=== PATIENT | male | born 1980 | race Caucasian/White ===

== ENCOUNTER 2016-11-09 09:13 | Inpatient (IN) ==
[2016-11-09] MEDS ORDERED: SODIUM CHLORIDE 0.9% 1,000 ML IV STA (10:36)
[2016-11-09] MEDS ORDERED: ONDANSETRON 4 MG/2 ML VIAL IV STA (10:36)
[2016-11-09] MEDS ORDERED: PROMETHAZINE INJ 25 MG in SODIUM CHLORIDE 0.9% 50 ML IV STA (10:36)
[2016-11-09] MEDS ORDERED: PROMETHAZINE 25 MG/1 ML VIAL ONE (11:03)
[2016-11-09] MEDS ORDERED: ONDANSETRON 4 MG/2 ML VIAL ONE (11:03)
[2016-11-09 11:07] LABS: Basophils % 0.5 % (0.0-0.8); Eosinophils # 0.2 10*3/uL (0.0-0.87); Eosinophils % 3.6 % (0.00-10.9); Hematocrit 41.4 VOL% (42.0-52.0); Immature Granulocytes % 0.2 %; Immature Granulocytes Absolute 0.01 #; Lymphocytes # 2.2 10*3/uL (1.4-4.0); Lymphocytes % 35.1 % (21.2-54.2); Mean Corpuscular HGB Conc 33.8 GM/DL (32-36); Mean Corpuscular Hemoglobin 30 PG (27-34); Mean Corpuscular Volume 89.6 FL (87-102); Mean Platelet Volume 11.1 FL (9.6-12.0); Monocytes # 0.3 10*3/uL (0.11-0.8); Monocytes % 4.9 % (1.7-12.7); Neutrophils # 3.4 10*3/uL (1.4-7.4); Neutrophils % 55.7 % (38.7-73.9); Platelet Count 221 10*3/uL (130-400); Red Blood Count 4.62 10*6/uL (3.8-5.5); Red Cell Distribution Width 12.2 % (9.3-17.3); White Blood Count 6.2 10*3/uL (4.5-13.71)
[2016-11-09 11:40] LABS: Alanine Aminotransferase 22 U/L (16-61); Albumin 3.5 G/DL (3.4-5.0); Alkaline Phosphatase 92 U/L (45-117); Amylase 27 U/L (25-115); Aspartate Amino Transferase 19 U/L (0-37); Bilirubin,Direct < 0.1 MG/DL (0.0-0.20); Bilirubin,Indirect 0.3 MG/DL (0.0-1.0); Bilirubin,Total < 0.39 MG/DL (0.2-1.0); Blood Urea Nitrogen 6 MG/DL (7-18); Calcium 8.5 MG/DL (8.5-10.1); Glucose 82 MG/DL (74-106); Magnesium 2.3 MG/DL (1.8-2.4); Osmolality,Calculated 279.1 MOS/KG (273-304); Potassium 4.5 MMOL/L (3.5-5.1); Sodium 142 MMOL/L (136-145); Total Protein 7.1 G/DL (6.4-8.3)
[2016-11-09] MEDS ORDERED: PROMETHAZINE 25 MG/1 ML VIAL IM STA (11:49)
[2016-11-09] MEDS ORDERED: MORPHINE 2 MG/1 ML SYRINGE IV STA (11:49)
[2016-11-09] MEDS ORDERED: MORPHINE 2 MG/1 ML SYRINGE ONE (11:51)
--- NOTE | 2016-11-09 12:28 | Emergency Department Note ---
Corbin Garcia Jamie, am scribing for, and in the presence of, Jenaro Allen M.D. 10:41. Tiffany Garcia Howard T, M.D., personally performed the services described in this documentation, ascribed by Darinel Alaniz in my presence, and it is both accurate and complete [id number] . Arrival - Arrival Chief Complaint: Abdominal / Flank Pain Stated Complaint: pain in right side ED Nursing Triage Note: c/o gallstones/abd pain/nausea and vomiting. hx: peripheral neuropathy Mode of Arrival: Ambulatory Limitations: No Limitations Source: Patient, RN Notes Reviewed Time Seen by Provider: 11/09/16 10:29 - History of Present Illness HPI Narrative: Patient is a 36 y/o white male who presents to the ED c/o right side abdominal pain, nausea, and vomiting. Patient states he has been diagnosed with gallstones in the past and sxs have been intermittent. He reports vomiting 8-9 times since this morning. Patient states the pain he feels today is worse than previous abdominal pain. Onset (ago): unknown Consistency: constant Severity: moderate Allergies/Adverse Reactions: Allergies Allergy/AdvReac Type Severity Reaction Status Date / Time aspirin Allergy Unknown/Unable Verified 10/03/16 17:00 to obtain ketorolac [From Toradol] Allergy Unknown/Unable Verified 10/03/16 17:00 to obtain Penicillins Allergy Unknown/Unable Verified 10/03/16 17:00 to obtain phenobarbital Allergy Unknown/Unable Verified 10/03/16 17:00 to obtain Home Medications: Home Medications Medication Instructions Recorded Confirmed Type Gabapentin Cap/Tab [Neurontin 900 mg PO TID 10/03/16 11/09/16 History Cap/Tab] Review of System - Review of System 12 point system: reviewed and no additional remarkable complaints except as stated - Review of System Constitutional: Absent: chills, diaphoresis, fever, weakness Eyes: Absent: vision change Respiratory: Absent: cough, respiratory distress Cardiovascular: Absent: chest pain Gastrointestinal: Present: abdominal pain, nausea, vomiting. Absent: diarrhea, constipation Musculoskeletal: Absent: joint swelling Skin: Absent: rash, change in color Neurological: Absent: headache, weakness, numbness, confusion Hematological/Lymphatic: Absent: easy bleeding, easy bruising Medical,Surgical,& Family Hx - Medical History Neurology: History of: Peripheral Neuropathy - Social History Smoking Status: Current every day smoker Frequency of Alcohol Use: None Type of Drug Use: None Exam Vital Signs: Vital Signs Temperature 98.5 F 11/09/16 09:24 Pulse Rate 102 H 11/09/16 09:24 Respiratory Rate 17 11/09/16 09:24 Blood Pressure 141/99 11/09/16 09:24 O2 Sat by Pulse Oximetry 96 11/09/16 09:24 - General General appearance: alert, in no apparent distress - Head Head exam: Present: atraumatic, normocephalic, normal inspection - Eye Eye exam: Present: normal appearance, PERRL, EOMI - ENT ENT exam: Present: normal exam, TM's normal bilaterally - Neck Neck exam: Present: normal inspection, thyromegaly - Chest Chest inspection: Present: normal inspection, symmetric chest wall rise - Respiratory Respiratory exam: Present: normal lung sounds bilaterally - Cardiovascular Cardiovascular exam: Present: regular rate, normal rhythm, normal heart sounds - Abdominal Exam Abdominal exam: Present: soft, tenderness (RUQ), normal bowel sounds - Extremities Exam Extremities exam: Present: normal inspection, full ROM - Neurological Exam Neurological exam: Present: alert, oriented X3, reflexes normal - Psychiatric Psychiatric exam: Present: normal affect, normal mood - Skin Skin exam: Present: warm, dry, intact, normal color Course Course Narrative: Medical decision making: Patient appears stable but history and exam is consistent with biliary colic, discussed Dr. Arthur surgeon on-call who evaluated the patient and decided to admit overnight with plan cholecystectomy tomorrow. Results - Labs CBC & BMP: 11/09/16 10:52 11/09/16 10:52 Lab Results: I have reviewed the patients labs Disposition Clinical Impression: Biliary colic, Cholelithiases Case discussed with: patient Disposition: Disch/Xfer-[facility] Condition: Stable Time of Disposition: 12:27
--- NOTE | 2016-11-09 12:34 | General Surg History&Physical ---
Assessment and Plan (1) Cholecystitis Status: Acute Assessment and plan: This patient has a clinical presentation consistent with acute cholecystitis. He will be admitted to the hospital for IV antibiotics. I discussed the management of this problem with him in detail. My recommendation has been for laparoscopic versus open cholecystectomy. I have discussed the risks, benefits , and alternatives of the operation with the patient, and the expected outcomes have been reviewed. Patient like to proceed with laparoscopic cholecystectomy. He'll be resuscitated today and we will schedule this for tomorrow. Current Visit: Yes History of Present Illness Chief complaint: abdominal pain History of present illness: Mr. Singer is a 36 year old male with a past surgical history of appendectomy who presents to the hospital with intermittent postprandial right upper quadrant pain that radiates through to the back and a severe episode started at 1 o'clock this morning. His current episode is associated with pain in the right upper quadrant radiating through the back with nausea and vomiting with bilious emesis. He has had no changes in his bowel movements. He had a low- grade temperature at home. The patient was evaluated in the ER with lab work which showed normal LFTs and normal lipase. He had a prior gallbladder ultrasound in September 2016 which demonstrated gallstones with no evidence of gallbladder wall thickening and a normal sized common bile duct. Home Medications Medication Instructions Recorded Confirmed Type Gabapentin Cap/Tab [Neurontin 900 mg PO TID 10/03/16 11/09/16 History Cap/Tab] Allergies Allergy/AdvReac Type Severity Reaction Status Date / Time aspirin Allergy Unknown/Unable Verified 10/03/16 17:00 to obtain ketorolac [From Toradol] Allergy Unknown/Unable Verified 10/03/16 17:00 to obtain Penicillins Allergy Unknown/Unable Verified 10/03/16 17:00 to obtain phenobarbital Allergy Unknown/Unable Verified 10/03/16 17:00 to obtain Medical,Surgical,& Family Hx - Medical History Neurology: History of: Peripheral Neuropathy - Social History Smoking Status: Current every day smoker Frequency of Alcohol Use: None Type of Drug Use: None Exam - Constitutional Vitals: Period Temp Pulse Resp BP Sys/Miranda Pulse Ox Last 24 Hr 98.5 F 102 17 141/99 96 General appearance: no acute distress, over weight - Head Head exam: Present: normal inspection, normocephalic - Eye Eye exam: Present: EOMI Pupils: Present: MONICO - ENT ENT exam: Present: normal exam Mouth exam: Present: normal external inspection, normal voice - Neck Neck exam: Present: normal inspection, trachea midline - Respiratory Respiratory exam: Present: clear to auscultation bilaterally. Absent: accessory muscle use, chest wall tenderness - Cardiovascular Cardiovascular exam: Present: RRR. Absent: systolic murmur, tachycardia - GI/Abdominal GI/Abdominal exam: Present: normal bowel sounds, Vo's sign, tenderness, soft. Absent: rebound - Extremities Exam Extremities exam: Present: normal inspection, normal capillary refill - Back Exam Back exam: Present: normal inspection - Neurological Exam Neurological exam: Present: alert, oriented X3 Speech: Present: normal - Skin Skin exam: Present: normal color, warm - Constitutional Constitutional: Present: as per HPI - EENT Nose, mouth and throat: Present: as per HPI - Cardiovascular Cardiovascular: Present: as per HPI - Respiratory Respiratory: Present: as per HPI - Gastrointestinal Gastrointestinal: Present: as per HPI - Genitourinary Genitourinary: Present: as per HPI - Musculoskeletal Musculoskeletal: Present: as per HPI - Neurological Neurological: Present: as per HPI - Endocrine Endocrine: Present: as per HPI Hematologic/Lymphatic: Present: as per HPI Results - Labs CBC & BMP: 11/09/16 10:52 11/09/16 10:52 - Diagnostic Findings Procedure: Ultrasound: image reviewed by me, report reviewed by me
[2016-11-09] MEDS ORDERED: ONDANSETRON 4 MG/2 ML VIAL IV PRN (13:29)
[2016-11-09] MEDS ORDERED: PROMETHAZINE 25 MG/1 ML VIAL IM PRN (13:29)
[2016-11-09] MEDS ORDERED: ACETAMINOPHEN 325 MG TABLET PO PRN (13:29)
[2016-11-09] MEDS: metroNIDAZOLE INJ 500 MG in PREMIX 1 EACH IV SCH ×2 (14:06→22:12)
[2016-11-09] MEDS: LACTATED RINGERS 1,000 ML IV SCH (14:07)
[2016-11-09] MEDS: HYDROmorphone 2 MG/1 ML VIAL IV PRN ×3 (14:07→22:12)
[2016-11-09] MEDS: GABAPENTIN 300 MG CAPSULE PO SCH ×2 (16:24→20:09)
[2016-11-09] MEDS: CIPROFLOXACIN INJ 400 MG in PREMIX 1 EACH IV SCH (16:24)
[2016-11-10] MEDS: LACTATED RINGERS 1,000 ML IV SCH ×3 (00:15→13:35)
[2016-11-10] MEDS: HYDROmorphone 2 MG/1 ML VIAL IV PRN ×6 (02:37→11:30)
[2016-11-10] MEDS: CIPROFLOXACIN INJ 400 MG in PREMIX 1 EACH IV SCH (03:36)
[2016-11-10] MEDS: metroNIDAZOLE INJ 500 MG in PREMIX 1 EACH IV SCH (06:01)
[2016-11-10] MEDS ORDERED: ENOXAPARIN 40 MG/0.4 ML SYRINGE SUBCUT SCH (06:30)
[2016-11-10] MEDS ORDERED: PANTOPRAZOLE 40 MG TABLET PO SCH (09:00)
[2016-11-10] MEDS ORDERED: BUPIVACAINE MPF 0.25% /EPI 30 ML VIAL ONE (09:39)
[2016-11-10] MEDS ORDERED: TISSUE ADHESIVE 1 EACH APPLICATOR TOP ONE (09:39)
[2016-11-10] MEDS ORDERED: LIDOCAINE 1%/EPI INJ 20 ML VIAL ONE (09:39)
[2016-11-10] MEDS ORDERED: ROCURONIUM 100 MG/10 ML VIAL IV ONE (09:45)
[2016-11-10] MEDS ORDERED: LIDOCAINE 1% 5 ML VIAL ONE (09:45)
[2016-11-10] MEDS ORDERED: ONDANSETRON 4 MG/2 ML VIAL ONE (09:45)
[2016-11-10] MEDS ORDERED: PROPOFOL 200 MG/20 ML VIAL IV ONE (09:45)
[2016-11-10] MEDS ORDERED: GLYCOPYRROLATE 0.4 MG/2 ML VIAL ONE (09:45)
[2016-11-10] MEDS ORDERED: NEOSTIGMINE 10 MG/10 ML VIAL ONE (09:45)
[2016-11-10] MEDS ORDERED: DEXAMETHASONE 10 MG/1 ML VIAL ONE (09:45)
--- NOTE | 2016-11-10 10:46 | Operative Note ---
Date of procedure: 11/10/16 Pre-op diagnosis: acute cholecystitis Post-op diagnosis: same Procedure: Preoperative diagnosis Acute cholecystitis Postoperative diagnosis Same Procedures performed Laparoscopic cholecystectomy Findings Acute inflammation was present in the gallbladder. The critical view of safety was obtained prior to placing clips on the cystic duct and cystic artery. Complications None apparent Specimen Gallbladder Anesthesia GETA Blood loss 5 mL Indications Acute cholecystitis Description of procedure The patient was taken to the operating room and transferred to the operating table in the supine position. Pressure points were padded and SCDs were placed lower extremities. General endotracheal anesthesia was administered. The abdomen was prepped chlorhexidine and draped sterilely. Preoperative antibiotics were administered, and a timeout was performed. The abdomen was entered at palmar splint because the patient's prior abdominal surgical history. Local anesthetic was administered and a 12 mm skin incision was made with an 11 blade scalpel. Entering towel clips for use graft abdominal wall skin and a Veress needle was used to enter the peritoneal cavity confirmed by double click technique. Aspiration was negative. Saline drop test confirmed intraperitoneal location. The abdomen was insufflated to 15 mmHg with an initial insufflation pressure of 5 mmHg. The Veress needle was then removed and a low millimeter trocar was placed blindly. Laparoscope was inserted. Diagnostic laparoscopy revealed no evidence of trocar or Veress needle injury. The patient was placed in reverse Trendelenburg and left side rolled up position. Under direct visualization, and after local anesthetic was administered, a supraumbilical and 2 right subcostal 5 mm trochars were placed. The gallbladder was grasped at the fundus and infundibulum and the cystic plate peritoneum was dissected until the critical view of safety was obtained. There is acute inflammation of the gallbladder wall. Clips were placed twice central and once laterally on the cystic duct and cystic artery. The structures were then divided laparoscopically with scissors between clips. The gallbladder was removed from the gallbladder fossa using the hook electrocautery. He was placed in a retrieval bag and removed through the midepigastric trocar without any fascial extension. There is no bleeding from the liver bed. The CO2 was released from the abdomen and the trochars were removed under direct visualization. Skin incisions were then closed with 4-0 Monocryl sterile skin glue. The patient was awakened from anesthesia and transferred to recovery. Postoperative plan Discharge home follow up in 2 weeks Anesthesia: [place], local Surgeon / Physician: Enrique Arthur Estimated blood loss: minimal Specimens: other (gallbladder) Condition: stable Disposition: PACU Results - Labs CBC & BMP: 11/09/16 10:52 11/09/16 10:52 Discharge Plan - Discharge Data Disposition: Disch To Home/Self Care Condition at Discharge: Stable Discharge Diet: advance to your usual diet Activity: no lifting Hygiene: may shower Weight Bearing at Discharge: weight bear as tolerated Driving: not until seen by doctor Contact your physician if you experience:: fever over 101, Difficulty voiding, Redness or swelling, Nausea/Vomiting, Shortness of breath, Bleeding, pain uncontrolled by pain medications Wound / Dressing Care Instructions: It is okay to shower. Do not submerge incisions under water. - Discharge Medications New HYDROcodone/ACETAMIN 7.5-325 [[place] 7.5-325] 1 tablet PO Q4H PRN #45 tablet PRN Reason: Pain Moderate (4-7) Continue Gabapentin Cap/Tab [Neurontin Cap/Tab] 900 mg PO TID - Follow Up or Referral Follow Up: Enrique Arthur MD [Physician] - 2 Weeks - Forms/Instructions Instructions: Laparoscopic Cholecystectomy (DC)
[2016-11-10] MEDS ORDERED: ONDANSETRON 4 MG/2 ML VIAL IV PRN (11:11)
[2016-11-10] MEDS ORDERED: HYDROmorphone 2 MG/1 ML VIAL ONE (11:13)
--- NOTE | 2016-11-10 11:39 | Anesthesia ---
Anesthesia Post OP - Post Ansesthetic Evaluation Patient seen in post op: Yes Resp: within normal limits CV: within normal limits Mental: within normal limits Temp: within normal limits [id number]: within normal limits Nausea and Vomiting: within normal limits Pain: within normal limits
[2016-11-10] MEDS ORDERED: MIDAZOLAM 2 MG/2 ML VIAL ONE (11:51)
[2016-11-10] MEDS ORDERED: fentaNYL 100 MCG/2 ML VIAL ONE (11:51)
[2016-11-10] MEDS ORDERED: ACETAMINOPHEN 1,000 MG/100 ML VIAL IV ONE (11:51)
[2016-11-10] MEDS ORDERED: SEVOFLURANE 1 UNIT/15 MINUTE INH ONE (11:52)
[2016-11-10] MEDS: GABAPENTIN 300 MG CAPSULE PO SCH (12:22)
[2016-11-10 14:35] VITALS: BP 111/64
--- NOTE | 2016-11-12 11:19 | Pathology Report from [facility] ---
ACCESSION # : [id number] PATIENT NAME : Mariela Singer ORDERING DR : Enrique Arthur MD CLINICAL HX: Acute cholecystitis POST-OP DX: same SPECIMEN INFO: Gallbladder GROSS DESCRIPTION: The speicmen is received in formalin labeled "MARIELA SINGER" and consists of an opened gallbladder measuring 9.5 x 2.0. cm. The serosa is smooth and yellow-briscoe. The gallbladder wall has an average thickness of 0.2 cm. The mucosal surface is velvety and red-pereira with numerous yellow-brown stones and stone fragments measuring 4.0 x 2.0 cm in aggregate. Financial Engineer sections of the gallbladder are submitted in one cassette. DIAGNOSIS FOR MARIELA SINGER: GALLBLADDER, CHOLECYSTECTOMY: Chronic cholecystitis. Cholelithiasis. SERVICE DATE: 11/11/2016 REPORT DATE: 11/12/2016 PATHOLOGIST: Neema Leung
== END 2016-11-10 14:02 | disposition home or self-care (01) | DRG 419 ==
LOC: N.ED 09:13 → N.EDINP 12:28 → N.3E 12:49
PROVIDERS: ADMIT Surgery; ATTEND Surgery
PROC: LAPCHOL (2016-11-10 09:45)